=== PATIENT | female | born 1985 | race African-American/Black ===

== ENCOUNTER 2018-08-21 11:47 | Day surgery (SDC) | payer OTHER ==
[2018-08-09 16:38] VITALS: BMI 29.1
[2018-08-21] MEDS ORDERED: PROPOFOL 20 ML ONE ×2 (12:37→14:02)
[2018-08-21] MEDS ORDERED: MIDAZOLAM HCL 2 MG/2 ML SINGLE DOSE VIAL ONE (13:29)
[2018-08-21 14:39] VITALS: TEMP 98
[2018-08-21 15:42] VITALS: BP 110/64; PULSE 66
--- NOTE | 2018-08-22 16:37 | OP ---
DATE OF OPERATION: 08/21/2018 PREOPERATIVE DIAGNOSIS: Right thumb mass. POSTOPERATIVE DIAGNOSIS: Right thumb mass. PROCEDURE: Right thumb mass excision. SURGEON: Nicholas Gomez M.D. ANESTHESIA: Local with sedation. COMPLICATIONS: None. ESTIMATED BLOOD LOSS: Minimal. INDICATION FOR PROCEDURE: The patient is a 33-year-old female with the above findings, indicated for operative treatment. Risks, benefits, and alternatives were discussed with the patient at length. Proper informed consent was obtained. PROCEDURE: After proper identification of the patient and correct operative site, patient was brought to the operating room and placed supine on the operating table, all bony prominences well padded. Sedation and local digital nerve block anesthesia were given. Right upper extremity was prepped and draped in the usual sterile fashion. Esmarch bandage to exsanguinate the right upper extremity. Tourniquet inflated to 250 mmHg. A longitudinal incision was made over the mass which is in the dorsal aspect of the IP joint of the thumb. Incision was taken sharply through the skin with blunt and sharp dissection through subcutaneous tissues. 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 It was excised in whole. It was sent for pathologic evaluation. Wound was irrigated and repaired with 5-0 plain gut suture. Sterile dressings were applied. Patient brought to recovery in stable condition. She tolerated procedure well. NICHOLAS GOMEZ M.D. [id number]
--- NOTE | 2018-08-27 13:37 | PATH ---
Surgical Pathology Report Patient Name: PAULINO VALLEJO [facility]. Rec. #: [id number] /Age/Gender: 1985 (Age: 33) / F Account: [id number] Location: [facility] AMBULATORY Taken: 08/22/2018 Received: 08/21/2018 Reported: 08/27/2018 Physicians: Nicholas Johnson M.D. 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 Comment: Mononuclear cells proliferation admixed with multinucleated giant cells. The tumor cells are positive for CD68, while negative for SMA, S-100, and CD34. The morphologic and immunophenotype are consistent with the above diagnosis. Immunohistochemistry stains CD68, SMA, S-100, and CD34 performed at [place], [place] ([id number]) interpreted at [facility]. Electronically Signed Jessi Wade M.D. Gross Description Received in formalin labeled "right thumb mass," is a 1.2 x 0.5 x 0.3 cm peck-yellow portion of soft tissue. The specimen is submitted in toto in one cassette. 08/22/201808/22/2018
== END 2018-08-21 15:30 | disposition home or self-care (01) ==
LOC: FASU 11:47
PROVIDERS: ATTEND Orthopaedic Surgery Hand Surgery
PROC: 0JBJ0ZZ Excision of Right Hand Subcutaneous Tissue and Fascia, Open Approach (ICD-10-PCS; principal; 2018-08-21 14:04)
DX: D48.1 Neoplasm of uncertain behavior of connective and other soft tissue (principal)
CPT/HCPCS: 84703; 88305-TC